=== PATIENT | male | born 1960 | race Caucasian/White ===

== ENCOUNTER 2018-02-17 06:53 | Emergency (ER) | payer OTHER ==
[~2018-02-17] VITALS: Ht 180.3 cm; Wt 87.5 kg
[2018-02-17 07:05] VITALS: BP 131/90
--- NOTE | 2018-02-17 07:37 | ED ANIMAL BITE/WOUND CHECK ---
History of Present Illness General Chief Complaint: Suture Removal/Wound Recheck Stated Complaint: WOUND CHECK Source: patient Exam Limitations: no limitations Vital Signs & Intake/Output Vital Signs & Intake/Output ED Intake and Output 02/18 0000 02/17 1200 Intake Total Output Total Balance Patient 193 lb Weight Weight Reported by Patient Measurement Method Allergies Coded Allergies: No Known Allergies (02/17/18) Triage Note: PT TO ED FOR WOUND CHECK OF LAC TO L EYE AREA. DENIES COMPLICATIONS. Triage Nurses Notes Reviewed? yes HPI: Patient presents for suture removal of a left facial wound incurred on Tuesday after colliding with the gate of his car. Patient offers no complaint at this time and feels that the wound is healing well. Past History Travel History Traveled to [place] past 21 day No Medical History Any Pertinent Medical History? see below for history Neurological: NONE EENT: NONE Cardiovascular: NONE Respiratory: NONE Gastrointestinal: NONE Hepatic: NONE Renal: NONE Musculoskeletal: NONE Psychiatric: NONE Endocrine: NONE Blood Disorders: NONE Cancer(s): NONE [employer]/Reproductive: NONE Tetanus Vaccine: 02/12/18 Surgical History Surgical History: none Psychosocial History What is your primary language Ukrainian Tobacco Use: Never used ETOH Use: occasional use Illicit Drug Use: denies illicit drug use Family History Hx Contributory? No Review of Systems Review of Systems Constitutional: Reports: no symptoms. EENTM: Reports: no symptoms. Respiratory: Reports: no symptoms. Cardiovascular: Reports: no symptoms. GI: Reports: no symptoms. Genitourinary: Reports: no symptoms. Musculoskeletal: Reports: no symptoms. Skin: Reports: no symptoms. Neurological/Psychological: Reports: no symptoms. Hematologic/Endocrine: Reports: no symptoms. Immunologic/Allergic: Reports: no symptoms. All Other Systems: Reviewed and Negative Physical Exam Physical Exam General Appearance: SEE BELOW Comments: Gen.: Well-nourished, well-developed, no acute respiratory distress. Head: Normocephalic, atraumatic. Eyes: Normal inspection bilaterally Ears: Normal inspection bilaterally Nose: Normal inspection Face: Well-healed sutured wound inferior to the left eye Throat/mouth : Moist mucosa Neck: Supple, full range of motion, no goiter Lungs: Quiet respirations Back: Normal range of motion Extremities: Normal range of motion grossly, no cyanosis clubbing or edema of the upper extremities Neurologic: Cranial nerves grossly intact, speech is clear Skin: warm and dry Psychiatric: Calm, cooperative, no apparent delusions or hallucinations Progress Differential Diagnosis: abscess, cellulitis, DEHISCENCE Plan of Care: Wound care Comments: After uneventful suture removal, Four Steri-Strips applied to reinforce the wound Departure Departure Disposition: HOME OR SELF CARE Condition: Stable Clinical Impression Primary Impression: Visit for suture removal Referrals: [facility],Vaughn Mccollum (PCP/Family) Additional Instructions: Keep the Steri-Strips clean and dry as discussed. After 3-5 days he may begin washing the area to encourage detachment. Return if any concerns or sudden worsening. Departure Forms: Customer Survey General Discharge Information
== END 2018-02-17 07:59 ==
LOC: ERH 06:53
DX: Z48.00 Encounter for change or removal of nonsurgical wound dressing (principal)